=== PATIENT | male | born 1995 | race Caucasian/White ===

== ENCOUNTER 2024-03-13 11:31 | Emergency (ER) | payer OTHER ==
[2024-03-13 11:43] VITALS: BMI 21.8
[2024-03-13] MEDS ORDERED: ACETAMINOPHEN INJECTION 100 ML IVPB ONE (13:21)
[2024-03-13 13:25] LABS: BASO % 1.1 % (0-2.0); EOS % 2.1 % (0-4.5); HEMOGLOBIN 14.8 GM/dL (11.7-16.9); LYMPH % 38.8 % (8-40); MCH 27.5 pg (25.7-33.7); MCHC 32.8 g/dl (32.0-35.9); MEAN CELL VOLUME 83.7 fl (80-96); MEAN PLT VOLUME 8.1 fl (7.5-11.1); MONO % 17.2 % (3.8-10.2); NEUT % 40.8 % (42.8-82.8); PLATELET COUNT 252 10^3/uL (134-434); RBC 5.38 M/mm3 (4.00-5.60); RDW 15.3 % (11.9-15.9); WHITE BLOOD COUNT 4.9 K/mm3 (4.0-10.0)
[2024-03-13 13:31] LABS: INR 1.02 (0.83-1.09); PROTHROMBIN TIME (PATIENT) 11.5 SEC (9.7-13.0)
[2024-03-13 13:34] LABS: ACTIVATED PTT 34.6 SECONDS (25.2-36.5)
[2024-03-13] MEDS: ACETAMINOPHEN 1000 MG/100 ML BAG IVPB ONE (13:37)
[2024-03-13 13:49] LABS: POTASSIUM 4.5 mmol/L (3.5-5.1)
[2024-03-13 13:51] LABS: BLOOD UREA NITROGEN 13.6 mg/dL (7-18)
[2024-03-13 13:54] LABS: CREATININE 0.8 mg/dL (0.55-1.3)
[2024-03-13 13:56] LABS: BILIRUBIN,TOTAL 0.4 mg/dL (0.2-1); TOT PROT 7.7 g/dl (6.4-8.2)
[2024-03-13] MEDS ORDERED: LIDOCAINE 4% PATCH TP ONE (16:12)
[2024-03-13] MEDS ORDERED: KETOROLAC TROMETHAMINE 30 MG/1 ML VIAL ONE (16:12)
[2024-03-13] MEDS: LIDOCAINE 4% PATCH TP ONE (16:21)
[2024-03-13] MEDS: KETOROLAC TROMETHAMINE 15 MG/ML VIAL IVPUSH ONE (16:22)
[2024-03-13 16:43] LABS: URINE APPEARANCE CLEAR; URINE BILIRUBIN NEGATIVE (NEGATIVE); URINE COLOR YELLOW; URINE GLUCOSE (UA) NEGATIVE (NEGATIVE); URINE KETONE NEGATIVE (NEGATIVE); URINE LEUK ESTERASE NEGATIVE (NEGATIVE); URINE NITRITE NEGATIVE (NEGATIVE); URINE PROTEIN NEGATIVE (NEGATIVE)
[2024-03-13 17:11] VITALS: BP 103/62; PULSE 62; RESP 18; TEMP 97.6
[2024-03-13] MEDS ORDERED: LIDOCAINE PATCH REMOVAL MC SCH (22:00)
== END 2024-03-13 17:22 | disposition home or self-care (01) ==
LOC: JER 11:31
PROC: 3E033NZ Introduction of Analgesics, Hypnotics, Sedatives into Peripheral Vein, Percutaneous Approach (ICD-10-PCS; principal; 2024-03-13)
PROC: 3E0333Z Introduction of Anti-inflammatory into Peripheral Vein, Percutaneous Approach (ICD-10-PCS; 2024-03-13)
DX: R10.9 Unspecified abdominal pain (principal); R07.81 Pleurodynia
CPT/HCPCS: 36415; 74177-TC; 80053; 81003; 85025; 85610; 85730; 86850; 86900; 86901; 99285-25; J0131; Q9967

== ENCOUNTER 2024-09-05 12:40 | Emergency (ER) | payer OTHER ==
[2024-09-05 12:59] VITALS: BP 134/80; PULSE 57; RESP 17; TEMP 98.5; BMI 23.0
[2024-09-05] MEDS ORDERED: AMOX TR/POT CLAV 875MG/125MG TABLETS (FP) ONE (14:35)
[2024-09-05] MEDS ORDERED: IBUPROFEN 600 MG TABLET (FP) PO ONE (14:35)
[2024-09-05] MEDS: AMOX TR/POT CLAV 875MG/125MG TABLETS (FP) PO ONE (14:41)
[2024-09-05] MEDS: IBUPROFEN 600 MG TABLET (FP) PO ONE (14:41)
== END 2024-09-05 14:43 | disposition home or self-care (01) ==
LOC: JERFT 12:40
DX: H66.92 Otitis media, unspecified, left ear (principal); H92.02 Otalgia, left ear
CPT/HCPCS: 99283-25